=== PATIENT | female | born 2000 | race Caucasian/White ===

== ENCOUNTER 2020-03-19 15:00 | Emergency (ER) | payer SELFPAY ==
[~2020-03-19] VITALS: Ht 162.6 cm; Wt 99.8 kg
[2020-03-19 15:24] VITALS: BP 140/78; Ht 162.6 cm; Wt 99.8 kg
== END 2020-03-19 16:34 | disposition home or self-care (01) ==
LOC: ED 15:00
DX: B34.9 Viral infection, unspecified (principal); Z20.828 Contact with and (suspected) exposure to other viral communicable diseases
CPT/HCPCS: U0003-CS